=== PATIENT | male | born 1975 | race Caucasian/White ===

== ENCOUNTER 2017-10-28 21:53 | Emergency (ER) | payer OTHER ==
[2017-10-28 22:58] VITALS: BP 139/91; PULSE 80; RESP 22; TEMP 98; O2SAT 98
[2017-10-28 23:24] LABS: AUTOMATED NEUTROPHIL # 3.3 TH/MM3 (1.8-7.7); BASOPHIL # 0.1 TH/MM3 (0-0.2); EOSINOPHIL # 0.3 TH/MM3 (0-0.4); EOSINOPHIL % 5.2 % (0.0-4.0); HEMATOCRIT 33.3 % (39.0-51.0); HEMOGLOBIN 11.8 GM/DL (13.0-17.0); LYMPH % 33.4 % (9.0-44.0); LYMPHOCYTE # 2.1 TH/MM3 (1.0-4.8); MEAN CELL VOLUME 97.3 FL (80.0-100.0); MEAN CORPUSCULAR HEMOGLOBIN 34.5 PG (27.0-34.0); MEAN CORPUSCULAR HGB CONC 35.5 % (32.0-36.0); MEAN PLATELET VOLUME 7.6 FL (7.0-11.0); MONO % 8.2 % (0.0-8.0); MONOCYTE # 0.5 TH/MM3 (0-0.9); NEUT % 52.2 % (16.0-70.0); PLATELET COUNT 244 TH/MM3 (150-450); RED BLOOD COUNT 3.42 MIL/MM3 (4.50-5.90); RED CELL DISTRIBUTION WIDTH 13.7 % (11.6-17.2); WHITE BLOOD COUNT 6.3 TH/MM3 (4.0-11.0)
[2017-10-28 23:40] LABS: ALBUMIN 4.1 GM/DL (3.4-5.0); AST (GOT) 58 U/L (15-37); BLOOD UREA NITROGEN 11 MG/DL (7-18); CALCIUM 9.3 MG/DL (8.5-10.1); CHLORIDE 106 MEQ/L (98-107); CREATININE 1.14 MG/DL (0.60-1.30); GLOMERULAR FILTRATION RATE 70 ML/MIN (>89); GLUCOSE,RANDOM 96 MG/DL (74-106); SODIUM (NA) 139 MEQ/L (136-145)
[2017-10-28 23:42] LABS: ALT (GPT) 58 U/L (12-78)
[2017-10-28 23:43] LABS: ACETAMINOPHEN LESS THAN 2.0 MCG/ML (10.0-30.0); ALKALINE PHOSPHATASE 108 U/L (45-117); TOTAL BILIRUBIN ADULT 0.3 MG/DL (0.2-1.0); TOTAL PROTEIN 8.1 GM/DL (6.4-8.2)
[2017-10-28] MEDS ORDERED: BUPR4MIS SL (23:48)
--- NOTE | 2017-10-29 | PD ---
HPI Chief Complaint: Psychiatric Symptoms Time Seen by Provider: 23:27 Travel History International Travel<30 days: No Contact w/Intl Traveler<30days: No Traveled to known affect area: No History of Present Illness HPI 41-year-old white male presents to emergency department under Pradhan act by PD. According the Pradhan act the patient had made suicidal statements that were recorded. The patient states that he feels that this may have been recorded earlier although the time stamp recent. The patient reports having an argument with his significant other. He claims that they were arguing over the fact that she has been abusing drugs again. She has been snorting cocaine as well as Adderall. The patient states that he has been sober now for 6 years off of drugs. He is currently taking Suboxone for substance abuse. He reports having several drinks today. He had gotten into an argument with his significant other. He denies making any suicidal homicidal statements. He states that he has a teenager that he has to take care for and has no intention of hurting himself. Patient states that this had all stem from the argument over her drug abuse. He reports that she was arrested last month for domestic abuse against him. She had been just released from shelter earlier this month. [facility] Past Medical History Narrative Medical History of substance abuse Past Surgical History Narrative Surgical Trauma as a child with splenic injury as well as kidney injury. Patient underwent splenectomy and open exploration. Fractured foot Social History Alcohol Use: Yes Tobacco Use: Yes Substance Use: No (currently on Suboxone) Allergies-Medications Reported Meds & Prescriptions Reported Meds & Active Scripts Active Reported Suboxone Sublingual Film (Buprenorphine-Naloxone Sublingual Film) 4-1 Mg Film 1 Film SL Unique ID number required: Review of Systems General / Constitutional: No: Fever Eyes: No: Visual changes HENT: No: Headaches Cardiovascular: No: Chest Pain or Discomfort Respiratory: No: Shortness of Breath Gastrointestinal: No: Abdominal Pain Genitourinary: No: Dysuria Musculoskeletal: No: Pain Skin: No Rash Neurologic: No: Weakness Psychiatric: No: Anxiety, Depression, Suicidal Ideations, Disorder of Thought, Mood Disorder, Substance Abuse, Homicidal Ideation Endocrine: No: Polydipsia Hematologic/Lymphatic: No: Easy Bruising Physical Exam Narrative GENERAL: Well-nourished, well-developed patient. SKIN: Warm and dry. HEAD: Normocephalic and atraumatic. EYES: No scleral icterus. No injection or drainage. ENT: No nasal drainage noted. Mucous membranes pink. Airway patent. NECK: Supple, trachea midline. Moves head freely without obvious discomfort. CARDIOVASCULAR: Regular rate and rhythm without murmurs, gallops, or rubs. RESPIRATORY: Breath sounds equal bilaterally. No accessory muscle use. GASTROINTESTINAL: Abdomen soft, non-tender, nondistended. EXTREMITIES: No cyanosis or edema. BACK: Nontender without obvious deformity. No CVA tenderness. NEURO: Patient is alert and oriented. no sensorimotor deficits. Nonfocal. Normal speech. PSYCH: No delusions. No auditory or visual hallucinations. Data Data Last Documented VS Vital Signs Date Time Temp Pulse Resp B/P (MAP) Pulse Ox O2 Delivery O2 Flow Rate FiO2 10/28/17 22:58 98.0 80 22 139/91 (107) 98 Room Air Orders Orders Complete Blood Count With Diff (10/28/17 22:46) Comprehensive Metabolic Panel (10/28/17 22:46) Psych Screen (10/28/17 22:46) Drug Screen, Random Urine (10/28/17 22:46) Alcohol (Ethanol) (10/28/17 22:46) Salicylates (Aspirin) (10/28/17 22:46) Tylenol (Acetaminophen) (10/28/17 22:46) Labs Laboratory Tests Test 10/28/17 22:50 10/28/17 23:07 Urine Opiates Screen NEG Urine Barbiturates Screen NEG Urine Amphetamines Screen NEG Urine Benzodiazepines Screen NEG Urine Cocaine Screen NEG Urine Cannabinoids Screen NEG White Blood Count 6.3 TH/MM3 Red Blood Count 3.42 MIL/MM3 Hemoglobin 11.8 GM/DL Hematocrit 33.3 % Mean Corpuscular Volume 97.3 FL Mean Corpuscular Hemoglobin 34.5 PG Mean Corpuscular Hemoglobin Concent 35.5 % Red Cell Distribution Width 13.7 % Platelet Count 244 TH/MM3 Mean Platelet Volume 7.6 FL Neutrophils (%) (Auto) 52.2 % Lymphocytes (%) (Auto) 33.4 % Monocytes (%) (Auto) 8.2 % Eosinophils (%) (Auto) 5.2 % Basophils (%) (Auto) 1.0 % Neutrophils # (Auto) 3.3 TH/MM3 Lymphocytes # (Auto) 2.1 TH/MM3 Monocytes # (Auto) 0.5 TH/MM3 Eosinophils # (Auto) 0.3 TH/MM3 Basophils # (Auto) 0.1 TH/MM3 CBC Comment DIFF FINAL Differential Comment Blood Urea Nitrogen 11 MG/DL Creatinine 1.14 MG/DL Random Glucose 96 MG/DL Total Protein 8.1 GM/DL Albumin 4.1 GM/DL Calcium Level 9.3 MG/DL Alkaline Phosphatase 108 U/L Aspartate Amino Transf (AST/SGOT) 58 U/L Alanine Aminotransferase (ALT/SGPT) 58 U/L Total Bilirubin 0.3 MG/DL Sodium Level 139 MEQ/L Potassium Level 3.8 MEQ/L Chloride Level 106 MEQ/L Carbon Dioxide Level 28.0 MEQ/L Anion Gap 5 MEQ/L Estimat Glomerular Filtration Rate 70 ML/MIN Acetaminophen Level LESS THAN 2.0 MCG/ML Ethyl Alcohol Level 171 MG/DL MDM Medical Decision Making Medical Screen Exam Complete: Yes Emergency Medical Condition: Yes Medical Record Reviewed: Yes Interpretation(s) Laboratory Tests Test 10/28/17 22:50 10/28/17 23:07 Urine Opiates Screen NEG Urine Barbiturates Screen NEG Urine Amphetamines Screen NEG Urine Benzodiazepines Screen NEG Urine Cocaine Screen NEG Urine Cannabinoids Screen NEG White Blood Count 6.3 TH/MM3 Red Blood Count 3.42 MIL/MM3 Hemoglobin 11.8 GM/DL Hematocrit 33.3 % Mean Corpuscular Volume 97.3 FL Mean Corpuscular Hemoglobin 34.5 PG Mean Corpuscular Hemoglobin Concent 35.5 % Red Cell Distribution Width 13.7 % Platelet Count 244 TH/MM3 Mean Platelet Volume 7.6 FL Neutrophils (%) (Auto) 52.2 % Lymphocytes (%) (Auto) 33.4 % Monocytes (%) (Auto) 8.2 % Eosinophils (%) (Auto) 5.2 % Basophils (%) (Auto) 1.0 % Neutrophils # (Auto) 3.3 TH/MM3 Lymphocytes # (Auto) 2.1 TH/MM3 Monocytes # (Auto) 0.5 TH/MM3 Eosinophils # (Auto) 0.3 TH/MM3 Basophils # (Auto) 0.1 TH/MM3 CBC Comment DIFF FINAL Differential Comment Blood Urea Nitrogen 11 MG/DL Creatinine 1.14 MG/DL Random Glucose 96 MG/DL Total Protein 8.1 GM/DL Albumin 4.1 GM/DL Calcium Level 9.3 MG/DL Alkaline Phosphatase 108 U/L Aspartate Amino Transf (AST/SGOT) 58 U/L Alanine Aminotransferase (ALT/SGPT) 58 U/L Total Bilirubin 0.3 MG/DL Sodium Level 139 MEQ/L Potassium Level 3.8 MEQ/L Chloride Level 106 MEQ/L Carbon Dioxide Level 28.0 MEQ/L Anion Gap 5 MEQ/L Estimat Glomerular Filtration Rate 70 ML/MIN Acetaminophen Level LESS THAN 2.0 MCG/ML Ethyl Alcohol Level 171 MG/DL Differential Diagnosis MDM: High Differential diagnoses: Schizophrenia, schizoaffective disorder, bipolar, anxiety, depression, adjustment reaction, mood disorder NOS, ODD, depressive disorder NOS, dementia, dementia with agitation, psychosis NOS, substance induced mood disorder, DMDD, Asperger syndrome, infection,electrolyte abnormality, malingering. Narrative Course Mental health screening discussed with the patient. Psychiatric screen ordered. Patient is been medically cleared. This is medical clearance for psychiatric admission Diagnosis Primary Impression: Medical clearance for psychiatric admission Condition: Stable Russell Ivy Oct 29, 2017 00:00
[2017-10-29 06:29] VITALS: BP 132/74; PULSE 70; RESP 18; O2SAT 97
--- NOTE | 2017-10-29 11:04 | PD ---
Physical Exam Date Seen by Provider: Oct 29, 2017 Time Seen by Provider: 11:02 Narrative 41-year-old male was brought to the emergency Department under Lorne act. He has been evaluated by the psychiatric nurse practitioner Pradhan act has been lifted. I then asked the discharge the patient. The patient denies any suicidal or homicidal ideation to me and feels comfortable being discharged. Data Data Last Documented VS Vital Signs Date Time Temp Pulse Resp B/P (MAP) Pulse Ox O2 Delivery O2 Flow Rate FiO2 10/29/17 06:29 70 18 132/74 (93) 97 Room Air 10/28/17 22:58 98.0 Orders Orders Complete Blood Count With Diff (10/28/17 22:46) Comprehensive Metabolic Panel (10/28/17 22:46) Psych Screen (10/28/17 22:46) Drug Screen, Random Urine (10/28/17 22:46) Alcohol (Ethanol) (10/28/17 22:46) Salicylates (Aspirin) (10/28/17 22:46) Tylenol (Acetaminophen) (10/28/17 22:46) Diet Regular Basic (10/29/17 Breakfast) Labs Laboratory Tests Test 10/28/17 22:50 10/28/17 23:07 Urine Opiates Screen NEG Urine Barbiturates Screen NEG Urine Amphetamines Screen NEG Urine Benzodiazepines Screen NEG Urine Cocaine Screen NEG Urine Cannabinoids Screen NEG White Blood Count 6.3 TH/MM3 Red Blood Count 3.42 MIL/MM3 Hemoglobin 11.8 GM/DL Hematocrit 33.3 % Mean Corpuscular Volume 97.3 FL Mean Corpuscular Hemoglobin 34.5 PG Mean Corpuscular Hemoglobin Concent 35.5 % Red Cell Distribution Width 13.7 % Platelet Count 244 TH/MM3 Mean Platelet Volume 7.6 FL Neutrophils (%) (Auto) 52.2 % Lymphocytes (%) (Auto) 33.4 % Monocytes (%) (Auto) 8.2 % Eosinophils (%) (Auto) 5.2 % Basophils (%) (Auto) 1.0 % Neutrophils # (Auto) 3.3 TH/MM3 Lymphocytes # (Auto) 2.1 TH/MM3 Monocytes # (Auto) 0.5 TH/MM3 Eosinophils # (Auto) 0.3 TH/MM3 Basophils # (Auto) 0.1 TH/MM3 CBC Comment DIFF FINAL Differential Comment Blood Urea Nitrogen 11 MG/DL Creatinine 1.14 MG/DL Random Glucose 96 MG/DL Total Protein 8.1 GM/DL Albumin 4.1 GM/DL Calcium Level 9.3 MG/DL Alkaline Phosphatase 108 U/L Aspartate Amino Transf (AST/SGOT) 58 U/L Alanine Aminotransferase (ALT/SGPT) 58 U/L Total Bilirubin 0.3 MG/DL Sodium Level 139 MEQ/L Potassium Level 3.8 MEQ/L Chloride Level 106 MEQ/L Carbon Dioxide Level 28.0 MEQ/L Anion Gap 5 MEQ/L Estimat Glomerular Filtration Rate 70 ML/MIN Salicylates Level LESS THAN 1.7 MG/DL Acetaminophen Level LESS THAN 2.0 MCG/ML Ethyl Alcohol Level 171 MG/DL [facility] Supervised Visit with MARQUIS: No Narrative Course 41-year-old male was brought to the emergency Department under Pradhan act. His Pradhan act has been lifted. The patient denies any suicidal or homicidal ideation. He is stable for discharge home. The patient was discharged in stable condition with instructions, including return instructions and follow up instructions. Diagnosis Primary Impression: Medical clearance for psychiatric admission Referrals: [facility] (Out patient) call for appointment Medication Management Patient Instructions: General Instructions, Stress (ED) Departure Forms: Tests/Procedures Med/Other Pt SpecificInfo: No Change to Meds Disposition: 01 DISCHARGE HOME Condition: Stable [place] Oct 29, 2017 11:04
--- NOTE | 2017-10-29 11:08 | PD ---
History of Present Illness Chief Complaint: Psychiatric Symptoms Time Seen by Provider: 10:30 Travel History International Travel<30 Days: No Contact w/Intl Traveler<30days: No Known affected area: No Legal Status Legal Status: Pradhan Act Pradhan Act Signed By: Juni Moffett History of Present Illness: History of Present Illness 41-year-old white male with no previous psychiatric history, history of substance use disorder who presents to emergency department under Pradhan act by PD when they responded to a call made by his girlfriend while they were arguing and and he allegedly made suicidal statements that were recorded. It is also reported that he allegedly had a fishing floats assembler next to the stove insinuating blowing there trailer up. Nursing report indicates that the patient has not been agitated, no behavioral concerns, no suicidality while in [facility]. Electronic medical record is reviewed. No previous contact with [facility] psychiatry. Toxicology report is negative. Blood alcohol level on arrival is 171. The patient is seen. He is alert, calm and cooperative. Clinically sober at this time. Speech is clear and logical and goal-directed. There is no evidence of any psychosis no chanel or hypomania. The patient denies any depression or anxiety. He states that he came home after work had a couple of drinks and was arguing with his girlfriend. He alleges that he never threatened to harm himself and that those statements were probably recorded by a neighbor or at an earlier time. He admits that he had been drinking and was intoxicated at the time of the argument and the subsequent call to the police. The patient denies any suicidal or homicidal ideation intent or plan. He states " I have a 13-year-old daughter, I have a good job which is stable, I just got a new vehicle and there is no reason why I would kill myself." Collateral information is obtained from the patient's father, Eddie who is here in our ED lobby. The patient's father has no concerns regarding his son's safety. He confirms that in fact there was an altercation with the girlfriend and that the patient has told him that he said something that he shouldn't have said. The father also reports that the girlfriend has been Pradhan acted in the past in context of an argument as well as with her previous boyfriend stated that he believes this is what motivated her to call the police [facility] Past Medical History Medical History: Denies Significant Hx Diabetes: No Patient Takes Glucophage: No Diminished Hearing: No Tetanus Vaccination: Unknown Past Surgical History Surgical History: No Previous Surgery Psychiatric History Psychiatric History Hx Psychiatric Treatment: PT DENIES. Denies any history of previous suicide attempt. History of Inpatient Treatment: No Guns or firearms in home: No Social History Single, lives with his girlfriend for the past 5 months. Has a 13-year-old daughter. 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 Hx Alcohol Use: Yes Hx Tobacco Use: Yes Hx Substance Use: No (currently on Suboxone) Substance Use Type: Heroin Hx of Substance Use Treatment: Yes (patient is currently on Suboxone treatment. Reports 6 years of being clean from drugs) Family Psychiatric History Unknown as patient is adopted. Allergies-Medications Reported Meds & Prescriptions Reported Meds & Active Scripts Active Reported Suboxone Sublingual Film (Buprenorphine-Naloxone Sublingual Film) 4-1 Mg Film 1 Film SL Unique ID number required: Review of Systems Psychiatric: DENIES: Anxiety, Confusion, Mood changes, Depression, Hallucinations, Agitation, Suicidal Ideation, Homicidal Ideation, Delusions Except as stated in HPI: all other systems reviewed are Neg Mental Status Examination Appearance: Appropriate Consciousness: Alert Orientation: x4 Motor Activity: Normal gait Speech: Unremarkable Language: Adequate Fund of Knowledge: Adequate Attention and Concentration: Adequate Memory: Unremarkable Affect: Appropriate Thought Process & Associations: Intact Thought Content: Appropriate Hallucination Type: None Delusion Type: None Suicidal Ideation: No Suicidal Plan: No Suicidal Intention: No Homicidal Ideation: No Homicidal Plan: No Homicidal Intention: No Insight: Adequate Judgment: Adequate [facility] Medical Decision Making Medical Record Reviewed: Yes Assessment/Plan 41-year-old male with no previous history of psychiatric illness, no previous history of suicide attempt, history of substance abuse currently on Suboxone for the past 6 years, when context of intoxication with alcohol and argument with his girlfriend was placed under the Pradhan act. The report alleges that he made suicidal statements as well as also holding a fishing floats assembler close to the stove insinuating that he was given a blow up the home. The patient made no attempt at harming himself. The patient presents no evidence of any unstable mental illness at this time as defined under the Pradhan act. He denies any suicidal or homicidal ideation, intent or plan. Collateral information has been obtained from the patient's father who has no concerns for the patient's safety. The patient is requesting to be discharge and I have no criteria to keep him under the Pradhan act. He is provided psychoeducation. The Pradhan act is lifted. Psychiatric clear for discharge from the ED. Orders Orders Complete Blood Count With Diff (10/28/17 22:46) Comprehensive Metabolic Panel (10/28/17 22:46) Psych Screen (10/28/17 22:46) Drug Screen, Random Urine (10/28/17 22:46) Alcohol (Ethanol) (10/28/17 22:46) Salicylates (Aspirin) (10/28/17 22:46) Tylenol (Acetaminophen) (10/28/17 22:46) Diet Regular Basic (10/29/17 Breakfast) Results Vital Signs Date Time Temp Pulse Resp B/P (MAP) Pulse Ox O2 Delivery O2 Flow Rate FiO2 10/29/17 06:29 70 18 132/74 (93) 97 Room Air 10/28/17 22:58 98.0 80 22 139/91 (107) 98 Room Air Laboratory Tests Test 10/28/17 22:50 10/28/17 23:07 Urine Opiates Screen NEG Urine Barbiturates Screen NEG Urine Amphetamines Screen NEG Urine Benzodiazepines Screen NEG Urine Cocaine Screen NEG Urine Cannabinoids Screen NEG White Blood Count 6.3 Red Blood Count 3.42 Hemoglobin 11.8 Hematocrit 33.3 Mean Corpuscular Volume 97.3 Mean Corpuscular Hemoglobin 34.5 Mean Corpuscular Hemoglobin Concent 35.5 Red Cell Distribution Width 13.7 Platelet Count 244 Mean Platelet Volume 7.6 Neutrophils (%) (Auto) 52.2 Lymphocytes (%) (Auto) 33.4 Monocytes (%) (Auto) 8.2 Eosinophils (%) (Auto) 5.2 Basophils (%) (Auto) 1.0 Neutrophils # (Auto) 3.3 Lymphocytes # (Auto) 2.1 Monocytes # (Auto) 0.5 Eosinophils # (Auto) 0.3 Basophils # (Auto) 0.1 CBC Comment DIFF FINAL Differential Comment Blood Urea Nitrogen 11 Creatinine 1.14 Random Glucose 96 Total Protein 8.1 Albumin 4.1 Calcium Level 9.3 Alkaline Phosphatase 108 Aspartate Amino Transf (AST/SGOT) 58 Alanine Aminotransferase (ALT/SGPT) 58 Total Bilirubin 0.3 Sodium Level 139 Potassium Level 3.8 Chloride Level 106 Carbon Dioxide Level 28.0 Anion Gap 5 Estimat Glomerular Filtration Rate 70 Salicylates Level LESS THAN 1.7 Acetaminophen Level LESS THAN 2.0 Ethyl Alcohol Level 171 Diagnosis Primary Impression: Medical clearance for psychiatric admission Additional Impression: Alcohol abuse Psychiatrically Cleared: Yes Med/ Other Pt Specific Info: No Change to Meds Disposition: 01 DISCHARGE HOME Condition: Stable Problem Qualifiers Nya Antoine Oct 29, 2017 11:08
== END 2017-10-29 11:52 | disposition home or self-care (01) ==
LOC: NEPJ 21:53
DX: F10.10 Alcohol abuse, uncomplicated (principal); R45.851 Suicidal ideations; Z79.899 Other long term (current) drug therapy; Z72.0 Tobacco use
CPT/HCPCS: 80053; 80307; 85025; 99284